=== PATIENT | female | born 1985 ===

== ENCOUNTER 2016-10-25 07:10 | Outpatient (CLI) | payer SELFPAY ==
--- NOTE | 2016-10-25 07:41 | Diagnostic Imaging Report ---
[facility] [address] [facility].[address] [address] Report Submission Date: Oct 25, 2016 7:37:44 AM CDT Patient Study Name: GUERO MICHAEL Date: Oct 25, 2016 7:15:55 AM CDT Modality Type: CR Gender: F Description: CHEST : 83 Institution: [facility] Physician: JASSI RIZO - KAL 3 views of the chest History: MID TO LOWER ANTERIOR CHEST WALL PAIN X ONE WEEK. PT STATES HURTS WHEN BREATHING Findings: No comparison Normal heart size. No consolidation or pleural effusion. No acute left rib fracture. Electronically signed on Oct 25, 2016 7:37:44 AM CDT by: Kamila RASCON
== END 2016-10-25 07:11 ==
LOC: RAD 07:10
PROVIDERS: ATTEND Nurse Practitioner
DX: R07.89 Other chest pain (principal)
CPT/HCPCS: 71100

== ENCOUNTER 2018-02-15 07:25 | Emergency (ER) | payer SELFPAY ==
[2018-02-15] MEDS ORDERED: ONDANSETRON HCL/PF 4 MG/ 2ML VIAL ONE (07:57)
[2018-02-15] MEDS ORDERED: KETOROLAC TROMETHAMINE 30 MG/1ML VIAL IVP ONE (08:00)
[2018-02-15] MEDS ORDERED: ONDANSETRON HCL/PF 4 MG/ 2ML VIAL IVP ONE (08:00)
[2018-02-15 08:16] LABS: BASOPHILS % 0.4 (0.0-1.5); EOSINOPHILS % 1.3 % (0.0-6.8); MEAN CORPUSCULAR HEMOGLOBIN 24.8 pg (28.0-34.0); MEAN CORPUSCULAR VOLUME 81.5 fl (80.0-100.0); MONOCYTES % 3.9 % (0.0-11.0); NEUTROPHILS # 5.2 # k/uL (1.4-7.7)
[2018-02-15 08:19] LABS: eGFR (African) > 60; eGFR (Non-African) > 60
--- NOTE | 2018-02-15 08:34 | ED Physician Documentation ---
Chest Pain - HISTORIAN Historian: patient - HPI Stated Complaint: Chest Pain Chief Complaint: Chest Pain Onset: hours (started 0400) Timing: sudden onset Duration: constant Last known Well Date: 02/15/18 Last Known Well Time: 03:00 Context: onset during:, sleep Severity: moderate Quality: pressure, aching, sharp Chest Pain Radiation: other (sternal area) Chest Pain Signs/Symptoms: denies: nausea, vomiting Worsened By: deep breaths Relieved By: rest - ROS CONST: no problems. denies: fever, chills MS/LYMPH: denies: neck pain, calf pain, ankle swelling SKIN/ENDO: denies: rash - PAST HX [place] risk factors: denies: hypertension, diabetes Type 2 Allergies/Adverse Reactions: Allergies Allergy/AdvReac Type Severity Reaction Status Date / Time No Known Allergies Allergy Unverified 02/15/18 07:55 Home Medications: Ambulatory Orders Medication Instructions Recorded NK 02/15/18 - SOCIAL HX Smoking History: non-smoker Alcohol Use: occasionally Drug Use: none - FAMILY HX Family HX: none - VITAL SIGNS Vital Signs: Vital Signs Temp Pulse Resp BP Pulse Ox 80 20 138/76 99 02/15/18 07:59 02/15/18 07:25 02/15/18 07:25 02/15/18 07:25 - REVIEWED ASSESSMENTS Nursing Assessment Reviewed: Yes Vitals Reviewed: Yes Progress - Progress Progress: 09:25 doing better at this time. pain 2-09/04 ED Results Lab/Radiology - Lab Results Lab Results: Lab Results 02/15/18 02/15/18 07:45 07:45 WBC 8.20 K/ul K/ul (4.00-12.00) RBC 4.83 M/ul M/ul (3.90-5.20) Hgb 12.0 g/dL g/dL (12.0-16.0) Hct 39.4 % % (34.5-46.5) MCV 81.5 fl fl (80.0-100.0) MCH 24.8 pg L pg (28.0-34.0) MCHC 30.5 g/dL g/dL (30.0-36.0) RDW 13.6 % % (11.3-14.3) Plt Count 324 K/mm3 K/mm3 (130-400) Neut % (Auto) 63.8 % % (39.0-79.0) Lymph % (Auto) 29.1 % % (16.0-50.0) [place] % (Auto) 3.9 % % (0.0-11.0) Eos % (Auto) 1.3 % % (0.0-6.8) Baso % (Auto) 0.4 (0.0-1.5) Neut # (Auto) 5.2 # k/uL # k/uL (1.4-7.7) Lymph # (Auto) 2.4 # k/uL # k/uL (0.6-4.0) [place] # (Auto) 0.3 # k/uL # k/uL (0.0-0.9) Eos # (Auto) 0.1 # k/uL # k/uL (0.0-0.6) Baso # (Auto) 0.0 # k/uL # k/uL (0.0-0.5) Reactive Lymphs % 1.4 % % (0.0-5.0) Reactive Lymphs # 0.1 # k/uL # k/uL (0.0-0.8) Sodium 141 mmol/L mmol/L (136-145) Potassium 3.9 mmol/L mmol/L (3.5-5.1) Chloride 104 mmol/L mmol/L (98-107) Carbon Dioxide 27 mmol/L mmol/L (22-30) BUN 10 mg/dL mg/dL (7-17) Creatinine 0.60 mg/dL mg/dL (0.52-1.04) Estimated Creat Clear 179 Est GFR ( Amer) > 60 (60 - ) Est GFR (Non-Af Amer) > 60 (60 - ) Glucose 90 mg/dL mg/dL (74-106) Calcium 8.6 mg/dL mg/dL (8.4-10.2) Total Bilirubin < 0.1 mg/dL L mg/dL (0.2-1.3) AST 13 U/L L U/L (15-46) ALT 18 U/L U/L (13-69) Alkaline Phosphatase 83 U/L U/L (38-126) Total Protein 7.5 g/dL g/dL (6.3-8.2) Albumin 3.9 g/dL g/dL (3.5-5.0) - Orders Orders: ED Orders Category Date Time Status Continuous EKG monitoring Q4H Care 02/15/18 07:[address] IV Lock 1T Care 02/15/18 08:00 Active CHEST 2VIEW [RAD] Routine Exams 02/15/18 Ordered CBC/PLATELET/DIFF Routine Lab 02/15/18 07:45 Completed CMP Routine Lab 02/15/18 07:45 Completed D DIMER Routine Lab 02/15/18 07:45 Received Ketorolac Tromethamine [Toradol] Med 02/15/18 08:00 Discontinued 30 mg IVP NOW ONE Ondansetron HCl/Pf [Zofran 4 mg/2 ml] Med 02/15/18 07:57 Discontinued 4 mg .ROUTE .STK-MED ONE Ondansetron HCl/Pf [Zofran 4 mg/2 ml] Med 02/15/18 08:00 Discontinued 4 mg IVP NOW ONE EKG WITH COMPARISON Routine Ther 02/15/18 Ordered Chest Pain Physical Exam - EXAM General Appearance: alert, moderate distress Neck: nml inspection. No: lymphadenopathy, subcutaneous emphysema Respiratory: no resp. distress, nml breath sounds, resp.distress, manifests distinct pain on movement, right (posterior). No: wheezes, rales, rhonchi CVS: reg. rate & rhythm, no murmur, no gallop, no friction rub Skin: warm/dry, normal color Neuro: oriented X3, cognition normal Discharge Clincal Impression: Trigger point of right shoulder region Referrals: Primary Doctor,No [Primary Care Provider] - 2 Days Additional Instructions: Try using a warm compress to the shoulder area. Take some antiinflammatory medication. If you have any further problems to return tot he ED or see your primary care provider. Condition: Stable Disposition: 01 HOME, SELF-CARE Decision to Admit: NO Date of Decison to Admit: 02/15/18 Decision Time: 09:26
[2018-02-15] MEDS ORDERED: fentaNYL CITRATE/PF 100 MCG/ 2ML AMP ONE (08:51)
[2018-02-15] MEDS ORDERED: fentaNYL CITRATE/PF 100 MCG/ 2ML AMP IVP ONE (08:53)
[2018-02-15 09:36] VITALS: BP 111/73
--- NOTE | 2018-02-15 09:47 | Diagnostic Imaging Report ---
EDITH OSHEA [facility] [address] [facility].[address] [address] Report Submission Date: Feb 15, 2018 9:01:02 AM CDT Patient Study Name: GUERO EGAN Date: Feb 15, 2018 8:27:09 AM CDT Modality Type: DX Gender: F Description: CHEST : 83 Institution: [facility] Physician: EDITH OSHEA Examination: PA and lateral chest. History: Evaluate lung garay. CHEST PAIN RADIATING TO RIGHT SIDE OF BACK STARTING THIS AM (Hx) Comparison exam: None provided. Findings: PA and lateral views of the chest demonstrates a normal cardiac and mediastinal silhouette. No focal infiltrate. No blunting of the costophrenic margins. Osseous structures are appropriate for age. Impression: No acute pulmonary process. Electronically signed on Feb 15, 2018 9:01:02 AM CDT by: Joseluis RASCON
== END 2018-02-15 09:35 | disposition home or self-care (01) ==
LOC: ED 07:25
DX: M79.1 Myalgia (principal); M25.511 Pain in right shoulder
CPT/HCPCS: 71046; 80053; 82553; 84484; 85025; 85379; 93005; J1885; J2405; J3010; 96374; 96375; 99284; S1016